=== PATIENT | male | born 1935 | race Caucasian/White ===

== ENCOUNTER 2017-10-06 09:03 | Day surgery (SDC) | payer MEDICARE, OTHER ==
[~2017-10-06 09:03] MED LIST: Bupivacaine 0.75%/D5W 2 ML Amp ONE; EPINEPHrine 1 MG/ML SDV ONE; Ketamine 500 mg/10 ML MDV ONE; Lactated Ringers 1,000 ML IV SCH; Lactated Ringers 1,000 ML ONE; Lidocaine 1% 12 ML ONE; Lidocaine 1%/Sod Bicarbonate in NS 8.4% 1 ML Syringe IDERM PRN; Lidocaine 1%/Sod Bicarbonate in NS 8.4% 1 ML Syringe IV PRN; Midazolam 1 MG/ML 2 ML SDV ONE; Morphine PF 10 MG/10 ML SDV ONE; Phenylephrine 1% 10 MG/ML SDV ONE; Propofol 200 MG/20 ML SDV ONE; Ropivacaine 0.5% 5 MG/ML 30 ML SDV ONE; Sodium Chloride 0.9% 10 ML Syringe FLUSH PRN; ceFAZolin 1 GM Vial ONE; fentaNYL 100 MCG/2 ML SDV ONE
--- NOTE | 2017-10-06 11:41 | PCM.PREANE ---
Preanesthetic Assessment - Procedure Proposed Procedure: right total knee arthroplasty and left knee cortisone injection - Anesthesia/Transfusion/Family Hx Anesthesia History: Prior Anesthesia Without Reaction Family History of Anesthesia Reaction: No Transfusion History: No Prior Transfusion(s) - Review of Systems General: No Symptoms Pulmonary: Other (COPD, MARQUITA with CPAP) Cardiovascular: Other (HTN, HLD) Neurological: Numbness (left mouth and cheek ), Weakness (slight left sided from hx of stroke ) Other: Reports: None, Easy Bruising (has not taken his blod thinner in "over a week"), Thyroid Problems (hypothyroid on replacement ) - Physical Assessment NPO Status Date: 10/05/17 NPO Status Time: 18:00 O2 Sat by Pulse Oximetry: 95 Respiratory Rate: 18 Vital Signs: Last Vital Signs Temp 37.2 C 10/06/17 09:40 Pulse 78 10/06/17 09:40 Resp 18 10/06/17 09:40 BP 124/76 10/06/17 09:40 Pulse Ox 95 10/06/17 09:40 Height: 1.75 m Weight: 112.4 kg ASA Class: 3 Mental Status: Alert & Oriented x3 Airway Class: Mallampati = 3 Dentition: Reports: Partial (upper and lower. Dentition appears fairly poor ) Thyro-Mental Finger Breadths: 3 Mouth Opening Finger Breadths: 3 ROM/Head Extension: Limited/Partial (hx of cervical surgery, difficult time extending) Lungs: Clear to Auscultation, Normal Respiratory Effort, Decreased Breath Sounds Cardiovascular: Regular Rate, Regular Rhythm, Other (distant heart tones ) - Lab Values: Laboratory Last Values Urine Color Dark yellow (Yellow) 10/06/17 09:30 Urine Appearance Clear (Clear) 10/06/17 09:30 Urine pH 6.0 (5.0-8.0) 10/06/17 09:30 Ur Specific Boomer > or = 1.030 (1.005-1.030) 10/06/17 09:30 Urine Protein Negative (Negative) 10/06/17 09:30 Urine Glucose (UA) Negative (Negative) 10/06/17 09:30 Urine Ketones Negative (Negative) 10/06/17 09:30 Urine Occult Blood Negative (Negative) 10/06/17 09:30 Urine Nitrite Negative (Negative) 10/06/17 09:30 Urine Bilirubin Negative (Negative) 10/06/17 09:30 Urine Urobilinogen 1.0 (0.2-1.0) 10/06/17 09:30 Ur Leukocyte Esterase Trace (Negative) H 10/06/17 09:30 Urine RBC 0-5 /hpf (0-5) 10/06/17 09:30 Urine WBC 0-5 /hpf (0-5) 10/06/17 09:30 Ur Epithelial Cells 5-10 /hpf (0-5) H 10/06/17 09:30 Urine Bacteria Few /hpf (FEW) 10/06/17 09:30 Urine Mucus Not seen /hpf (FEW) 10/06/17 09:30 - Allergies Allergies/Adverse Reactions: Allergies Allergy/AdvReac Type Severity Reaction Status Date / Time No Known Allergies Allergy Verified 10/03/17 11:04 - Blood Blood Available: No Product(s) Available: None - Anesthesia Plan Pre-Op Medication Ordered: None - Acknowledgements Anesthesia Type Planned: Spinal, Regional Block (adductor canal block post op) Pt an Appropriate Candidate for the Planned Anesthesia: Yes Alternatives and Risks of Anesthesia Discussed w Pt/Guardian: Yes Pt/Guardian Understands and Agrees with Anesthesia Plan: Yes PreAnesthesia Questionnaire HEENT History: Reports: Impaired Vision, Other (See Below) Other HEENT History: wears glasses, has dentures Cardiovascular History: Reports: High Cholesterol, Hypertension, Other (See Below) Other Cardiovascular History: 1st degree AV block Respiratory History: Reports: COPD, Sleep Apnea Gastrointestinal History: Reports: GERD, PUD Genitourinary History: Reports: BPH, Other (See Below) Other Genitourinary History: CKD III, testicular mass, prostatism, UTI [employer] History: Reports: None Musculoskeletal History: Reports: Osteoarthritis, Other (See Below) Other Musculoskeletal History: generalized weakenss, left shoulder pain Neurological History: Reports: CVA Psychiatric History: Reports: None Endocrine/Metabolic History: Reports: Hypothyroidism, Obesity/BMI 30+ Immunologic History: Reports: None Oncologic (Cancer) History: Reports: None Dermatologic History: Reports: Eczema - Past Surgical History Cardiovascular Surgical History: Reports: None Respiratory Surgical History: Reports: None GI Surgical History: Reports: Colonoscopy, Hernia, Inguinal, Other (See Below) Other GI Surgeries/Procedures: partial gastrectomy for PUD, poylpectomy Female Surgical History: Reports: None Male Surgical History: Reports: None Endocrine Surgical History: Reports: None Neurological Surgical History: Reports: Other (See Below) Other Neurological Surgeries/Procedures: laminoplasty of C4-5, C5-6, C6-7 Musculoskeletal Surgical History: Reports: Shoulder Surgery Oncologic Surgical History: Reports: None - SUBSTANCE USE Smoking Status *Q: Former Smoker Tobacco Use Within Last Twelve Months: No Second Hand Smoke Exposure: No Recreational Drug Use History: No - HOME MEDS Home Medications: Home Meds Cholecalciferol (Vitamin D3) [Vitamin D3] 5,000 unit PO DAILY 10/03/17 [History] Clopidogrel Bisulfate [Clopidogrel] 75 mg PO DAILY 10/03/17 [History] Clotrimazole [Clotrimazole 1%] 1 dose TOP BID PRN 10/03/17 [History] Docusate Sodium [Stool Softener] 100 mg PO DAILY 10/03/17 [History] Levothyroxine Sodium [Levoxyl] 125 mcg PO DAILY 10/03/17 [History] Metoprolol Succinate [Toprol Xl] 25 mg PO BEDTIME 10/03/17 [History] Omeprazole 40 mg PO DAILY 10/03/17 [History] Simvastatin [Zocor] 20 mg PO DAILY 10/03/17 [History] Sulfamethoxazole/Trimethoprim [Sulfamethoxazole-Tmp Ds Tablet] 1 tab PO DAILY [History] Tamsulosin HCl 0.4 mg PO DAILY 10/03/17 [History] buPROPion [Wellbutrin SR] 100 mg PO DAILY 10/03/17 [History] - CURRENT (IN HOUSE) MEDS Current Meds: Current Medications Acetaminophen (Tylenol) 975 mg PO NOW ONE Stop: 10/06/17 12:31 Bisacodyl (Dulcolax) 5 mg PO DAILY PRN PRN Reason: Constipation Morphine Sulfate 8 mg/Epinephrine HCl 0.3 mg/Cefuroxime Sodium 750 mg/Ketorolac Tromethamine 30 mg/Sodium Chloride 27.9 ml 0 mg .XX ONETIME ONE Stop: 10/06/17 12:31 Docusate Sodium (Colace) 100 mg PO BID ION Famotidine (Pepcid) 20 mg PO Q12H ION Lactated Ringer's (Ringers, Lactated) 1,000 mls @ 125 mls/hr IV ASDIRECTED ION Stop: 10/06/17 23:00 Last Admin: 10/06/17 10:10 Dose: 125 mls/hr Cefazolin Sodium/Dextrose 2 gm (/ Premix) 50 mls @ 100 mls/hr IV Q8H [facility] Stop: 10/06/17 23:44 Ketorolac Tromethamine (Toradol) 15 mg IVPUSH Q6H PRN PRN Reason: Pain Lidocaine/Sodium Bicarbonate (Buffered Lidocaine 1% In Ns 8.4%) 0.25 ml IDERM ONETIME PRN PRN Reason: Prior to IV Start Stop: 10/06/17 18:00 Last Admin: 10/06/17 10:10 Dose: 0.25 ml Magnesium Hydroxide (Milk Of Magnesia) 30 ml PO BID PRN PRN Reason: Constipation Morphine Sulfate (Morphine) 2 mg IVPUSH Q2H PRN PRN Reason: Breakthrough Pain Naloxone HCl (Narcan) 0.1 mg IVPUSH Q5M PRN PRN Reason: Oversedation Ondansetron HCl (Zofran) 4 mg IVPUSH Q6H PRN PRN Reason: Nausea/Vomiting Oxycodone HCl (Oxycontin) 10 mg PO ONETIME ONE Stop: 10/06/17 12:31 Oxycodone/Acetaminophen (Percocet 325-5 Mg) 1 - 2 tab PO Q4H PRN PRN Reason: Pain Pregabalin (Lyrica) 50 mg PO DAILY ION Rivaroxaban (Xarelto) 10 mg PO DAILY [facility] Senna (Senna) 8.6 mg PO BID PRN PRN Reason: Constipation Sodium Chloride (Saline Flush) 10 ml FLUSH ASDIRECTED PRN PRN Reason: Keep Vein Open Stop: 10/06/17 18:00 Discontinued Medications Bupivacaine HCl/Dextrose (Marcaine 0.75% Spinal) Confirm Administered Dose 2 ml .ROUTE .STK-MED ONE Stop: 10/06/17 07:27 Cefazolin Sodium (Ancef) Confirm Administered Dose 2 gm .ROUTE .STK-MED ONE Stop: 10/06/17 07:52 Epinephrine HCl (Adrenalin) Confirm Administered Dose 1 mg .ROUTE .STK-MED ONE Stop: 10/06/17 06:41 Fentanyl (Sublimaze) Confirm Administered Dose 100 mcg .ROUTE .STK-MED ONE Stop: 10/06/17 07:53 Lactated Ringer's (Ringers, Lactated) 1,000 mls @ 125 mls/hr IV ASDIRECTED ION Lidocaine HCl (Xylocaine-Mpf 1%) Confirm Administered Dose 12 mls @ as directed .ROUTE .STK-MED ONE Stop: 10/06/17 07:52 Lactated Ringer's (Ringers, Lactated) Confirm Administered Dose 1,000 mls @ as directed .ROUTE .STK-MED ONE Stop: 10/06/17 07:54 Ketamine HCl (Ketalar) Confirm Administered Dose 500 mg .ROUTE .STK-MED ONE Stop: 10/06/17 07:54 Lidocaine/Sodium Bicarbonate (Buffered Lidocaine 1% In Ns 8.4%) 0.25 ml IV ONETIME PRN PRN Reason: Prior to IV Start Midazolam HCl (Versed 1 Mg/Ml) Confirm Administered Dose 2 mg .ROUTE .STK-MED ONE Stop: 10/06/17 07:53 Morphine Sulfate (Duramorph Pf) Confirm Administered Dose 10 mg .ROUTE .STK-MED ONE Stop: 10/06/17 07:27 Phenylephrine HCl (Nav-Synephrine) Confirm Administered Dose 10 mg .ROUTE .STK- MED ONE Stop: 10/06/17 07:52 Propofol (Diprivan 20 Ml) Confirm Administered Dose 400 mg .ROUTE .STK-MED ONE Stop: 10/06/17 07:52 Ropivacaine (Naropin 0.5%) Confirm Administered Dose 30 ml .ROUTE .STK-MED ONE Stop: 10/06/17 06:41 Sodium Chloride (Saline Flush) 10 ml FLUSH ASDIRECTED PRN PRN Reason: Keep Vein Open
[2017-10-06] MEDS ORDERED: Bupivacaine 0.25% 30 ML SDV ONE (12:03)
[2017-10-06] MEDS ORDERED: Vancomycin 1 GM SDV ONE (12:21)
[2017-10-06] MEDS ORDERED: Iodine/Sodium Iodide 2% Tincture 30 ML Bottle ONE (12:21)
[2017-10-06] MEDS ORDERED: ceFAZolin 1 GM Vial ONE (12:22)
[2017-10-06] MEDS ORDERED: Triamcinolone Acetonide 40 MG/ML 1 ML MDV ONE ×2 (12:22→12:30)
[2017-10-06] MEDS ORDERED: Pregabalin 25 MG Cap PO SCH (12:30)
[2017-10-06] MEDS ORDERED: oxyCODONE ER 10 MG TAB.ER PO ONE (12:30)
[2017-10-06] MEDS ORDERED: Acetaminophen 325 MG Tab PO ONE (12:30)
[2017-10-06] MEDS ORDERED: Ondansetron 4 MG/2 ML SDV IVPUSH PRN ×2 (13:30→14:20)
[2017-10-06] MEDS ORDERED: Bisacodyl 5 MG Tab PO PRN (13:30)
[2017-10-06] MEDS ORDERED: Morphine 2 MG/ML Syringe IVPUSH PRN (13:30)
[2017-10-06] MEDS ORDERED: Sennosides 8.6 MG Tab PO PRN (13:30)
[2017-10-06] MEDS ORDERED: Naloxone 0.4 MG/ML SDV IVPUSH PRN (13:30)
[2017-10-06] MEDS ORDERED: Magnesium Hydroxide 400 MG/5 ML Susp 30 ML Cup PO PRN (13:30)
[2017-10-06] MEDS ORDERED: Ketorolac 15 MG/ML SDV IVPUSH PRN (13:30)
[2017-10-06] MEDS ORDERED: fentaNYL 100 MCG/2 ML SDV IVPUSH PRN (14:20)
[2017-10-06] MEDS ORDERED: HYDROmorphone 0.5 MG/0.5 ML Syringe IVPUSH PRN (14:20)
[2017-10-06] MEDS ORDERED: diphenhydrAMINE 50 MG/ML SDV IVPUSH PRN (14:20)
[2017-10-06] MEDS ORDERED: ePHEDrine 50 MG/ML SDV IVPUSH PRN (14:20)
[2017-10-06] MEDS ORDERED: Lidocaine 1% 4 ML ONE (14:21)
[2017-10-06] MEDS ORDERED: Phenylephrine 1 MG in Sodium Chloride 0.9% 10 ML IV SCH (14:30)
[2017-10-06] MEDS ORDERED: Lactated Ringers 1,000 ML ONE (14:51)
[2017-10-06] MEDS: Morphine 8 MG, EPINEPHrine 0.3 MG, Cefuroxime 750 MG, Ketorolac 30 MG, Sodium Chloride ... ONE ×10 (15:27→15:29)
[2017-10-06] MEDS: Bupivacaine 0.25% 30 ML SDV ONE ×2 (15:29→16:04)
[2017-10-06] MEDS ORDERED: Clotrimazole 1% Crm 30 GM Tube TOP PRN (16:19)
--- NOTE | 2017-10-06 16:20 | PCM.POSTAN ---
POST ANESTHESIA ASSESSMENT - MENTAL STATUS Mental Status: Alert, Oriented - VITAL SIGNS Pulse Rate: 73 SaO2: 93 Resp Rate: 15 Blood Pressure: 99/62 Temperature: 36.5 C - RESPIRATORY Respiratory Status: Respiratory Rate WNL, Airway Patent, O2 Saturation Stable, Supplemental Oxygen - CARDIOVASCULAR CV Status: Pulse Rate WNL, Blood Pressure Stable - GASTROINTESTINAL GI Status: No Symptoms - PAIN Pain Score: 0 - POST OP HYDRATION Hydration Status: Adequate & Stable
--- NOTE | 2017-10-06 16:51 | PCM.OPNOTE ---
- General Post-Op/Procedure Note Date of Surgery/Procedure: 10/06/17 Operative Procedure(s): right total knee arthroplasty Pre Op Diagnosis: right knee osteoarthrosis Post-Op Diagnosis: Same Anesthesia Technique: Local, MAC, Spinal Primary Surgeon: Dereck Ruff Anesthesia Provider: Deepa Ventura Developer Architect: Rosie Luis Developer Architect: Rukhsana Asher in mLs: 5 Complications: None Condition: Good Free Text/Narrative:: size 6 32x10 9mm
--- NOTE | 2017-10-06 16:52 | PCM.SN ---
- Free Text/Narrative Note: Right selective femoral nerve block at the adductor canal for post-procedure pain control Time Out: 1630 Start: 1630 End: 163 Chart reviewed. Consent signed. Questions answered. Appropriate monitors applied. Time out performed. Right mid-shaft femur evaluated with ultrasound. Scanning medially femur, I was able to identify the femoral artery in the adductor canal. The saphenous nerve was lateral to the artery. The skin was prepped lateral to the ultrasound probe with chlorahexadine. The 21ga 4 insulated block needle was inserted under direct ultrasound guidance into the adductor canal. 20mL of 0.5% ropivacaine with 1:200,000 epinephrine was injected cirmcumferentially about the nerve with intermittent negative aspiration every 5mL. Patient tolerated the procedure well. See pictures on progress note and vital signs on nurses notes. Block completed postoperatively. Messi Muñiz CRNA
--- NOTE | 2017-10-06 16:56 | CR ---
Right knee: AP and lateral views of the right knee were obtained. Comparison: No previous knee study. Recently placed right knee prosthesis is seen. Components are aligned. Soft tissue air is noted. Underlying bony structures are intact. Impression: 1. Satisfactory postoperative radiographic appearance of recently placed right knee prosthesis. Diagnostic code #2
[2017-10-06] MEDS: Docusate Sodium 100 MG Cap PO SCH (20:42)
[2017-10-06] MEDS: ceFAZolin 2 GM in Premix Bag 1 BAG IV SCH (20:43)
[2017-10-06] MEDS: Famotidine 20 MG Tab PO SCH (20:43)
[2017-10-06] MEDS ORDERED: Metoprolol Succinate 25 MG Tab.ER PO SCH (21:00)
[2017-10-06] MEDS ORDERED: Scopolamine 1.5 MG Transdermal Patch TRDERM PRN (21:05)
[2017-10-07] MEDS ORDERED: Metoclopramide 10 MG/2 ML SDV IVPUSH PRN (00:30)
[2017-10-07] MEDS: ceFAZolin 2 GM in Premix Bag 1 BAG IV SCH ×2 (05:28→12:03)
[2017-10-07] MEDS: Acetaminophen/oxyCODONE 325-5 MG Tab PO PRN ×2 (05:30→06:52)
--- NOTE | 2017-10-07 06:18 | PCM.CONS ---
H&P History of Present Illness - General Date of Service: 10/07/17 Admit Problem/Dx: Admission Diagnosis/Problem Admission Diagnosis/Problem Osteoarthritis of knee Source of Information: Patient, Old Records, Provider, RN, RN Notes Reviewed History Limitations: Reports: No Limitations - History of Present Illness Initial Comments - Free Text/Narative: Altaf Bustamante is a 82 yo male patient of Dr. Ruff who is post-operative day 1 of right TKA. Hospital medicine was consulted for post-operative medical care. At this time he is resting comfortably in the chair. Pain is controlled. He denies any chest pain, shortness of breath, palpitations, nausea, or vomiting. He carries a history of: COPD, MARQUITA on CPAP, HLD, HTN, 1st degree AV block, GERD, BPH, PUD, CKD stage III, testicular mass, prostatism, OA, CVA, obesity, hypotension, exzema. He is a former smoker. He is a full code. His primary care provider is Dr. Sam Spivey in [place]. Right Knee Pain Score (Numeric/FACES): 7 - Related Data Allergies/Adverse Reactions: Allergies Allergy/AdvReac Type Severity Reaction Status Date / Time No Known Allergies Allergy Verified 10/03/17 11:04 Home Medications: Home Meds Cholecalciferol (Vitamin D3) [Vitamin D3] 5,000 unit PO DAILY 10/03/17 [History] Clopidogrel Bisulfate [Clopidogrel] 75 mg PO DAILY 10/03/17 [History] Clotrimazole [Clotrimazole 1%] 1 dose TOP BID PRN 10/03/17 [History] Docusate Sodium [Stool Softener] 100 mg PO DAILY 10/03/17 [History] Levothyroxine Sodium [Levoxyl] 125 mcg PO DAILY 10/03/17 [History] Metoprolol Succinate [Toprol Xl] 25 mg PO BEDTIME 10/03/17 [History] Omeprazole 40 mg PO DAILY 10/03/17 [History] Simvastatin [Zocor] 20 mg PO DAILY 10/03/17 [History] Sulfamethoxazole/Trimethoprim [Sulfamethoxazole-Tmp Ds Tablet] 1 tab PO DAILY [History] Tamsulosin HCl 0.4 mg PO DAILY 10/03/17 [History] buPROPion [Wellbutrin SR] 100 mg PO DAILY 10/03/17 [History] Past Medical History HEENT History: Reports: Impaired Vision, Other (See Below) Other HEENT History: wears glasses, has dentures Cardiovascular History: Reports: High Cholesterol, Hypertension, Other (See Below) Other Cardiovascular History: 1st degree AV block Respiratory History: Reports: COPD, Sleep Apnea Gastrointestinal History: Reports: GERD, PUD Genitourinary History: Reports: BPH, Other (See Below) Other Genitourinary History: CKD III, testicular mass, prostatism, 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 Musculoskeletal History: Reports: Osteoarthritis, Other (See Below) Other Musculoskeletal History: generalized weakenss, left shoulder pain Neurological History: Reports: CVA Psychiatric History: Reports: None Endocrine/Metabolic History: Reports: Hypothyroidism, Obesity/BMI 30+ Immunologic History: Reports: None Oncologic (Cancer) History: Reports: None Dermatologic History: Reports: Eczema - Past Surgical History Cardiovascular Surgical History: Reports: None Respiratory Surgical History: Reports: None GI Surgical History: Reports: Colonoscopy, Hernia, Inguinal, Other (See Below) Other GI Surgeries/Procedures: partial gastrectomy for PUD, poylpectomy Female Surgical History: Reports: None Male Surgical History: Reports: None Endocrine Surgical History: Reports: None Neurological Surgical History: Reports: Other (See Below) Other Neurological Surgeries/Procedures: laminoplasty of C4-5, C5-6, C6-7 Musculoskeletal Surgical History: Reports: Shoulder Surgery Oncologic Surgical History: Reports: None Social & Family History - Tobacco Use Smoking Status *Q: Former Smoker Used Tobacco, but Quit: Yes Month/Year Tobacco Last Used: 1978 Second Hand Smoke Exposure: No - Caffeine Use Caffeine Use: Reports: Coffee - Recreational Drug Use Recreational Drug Use: No Drug Use in Last 12 Months: No H&P Review of Systems - Review of Systems: Review Of Systems: See Below General: Reports: No Symptoms HEENT: Reports: No Symptoms Pulmonary: Reports: No Symptoms Cardiovascular: Reports: No Symptoms Gastrointestinal: Reports: No Symptoms Genitourinary: Reports: No Symptoms Musculoskeletal: Reports: Leg Pain, Joint Pain Skin: Reports: No Symptoms Psychiatric: Reports: No Symptoms Neurological: Reports: No Symptoms Hematologic/Lymphatic: Reports: No Symptoms Immunologic: Reports: No Symptoms Exam - Exam Exam: See Below - Vital Signs Vital Signs: Last Vital Signs Temp 96.6 F 10/07/17 04:10 Pulse 78 10/07/17 04:10 Resp 16 10/07/17 04:10 BP 102/66 10/07/17 04:10 Pulse Ox 97 10/07/17 04:10 Weight: 247 lb 12.79 oz - Exam Quality Assessment: DVT Prophylaxis General: Alert, Oriented, Cooperative. No: Mild Distress HEENT: Conjunctiva Clear, EACs Clear, EOMI, Hearing Intact, Mucosa Moist & [place] , Nares Patent, Posterior Pharynx Clear, PERRLA Neck: Supple, Trachea Midline Lungs: Clear to Auscultation, Normal Respiratory Effort, Decreased Breath Sounds Cardiovascular: Regular Rate, Regular Rhythm GI/Abdominal Exam: Normal Bowel Sounds, Soft, Non-Tender, No Organomegaly, No Distention, No Abnormal Bruit, No Mass, Pelvis Stable (Male) Exam: Deferred Rectal (Males) Exam: Deferred Back Exam: Normal Inspection, Decreased Range of Motion Extremities: No Pedal Edema, Normal Capillary Refill, Leg Pain, Limited Range of Motion, Other (FRANKIE bandage on right leg. Bandage is dry and intact. Cooling pack in place.) Peripheral Pulses: 2+: Radial (L), Radial (R), Posterior Tibial (L), Posterior Tibial (R), Dorsalis Pedis (L), Dorsalis Pedis (R) Skin: Warm, Dry, Intact Neurological: Cranial Nerves Intact (grossly ) Neuro Extensive - Mental Status: Alert, Oriented x3, Normal Mood/Affect, Normal Cognition, Memory Intact Psychiatric: Alert, Normal Affect, Normal Mood - Patient Data Lab Results Last 24 hrs: Laboratory Results - last 24 hr 10/06/17 Range/Units 09:30 Urine Color Dark yellow (Yellow) Urine Appearance Clear (Clear) Urine pH 6.0 (5.0-8.0) Ur Specific Gaines > or = 1.030 (1.005-1.030) Urine Protein Negative (Negative) Urine Glucose (UA) Negative (Negative) Urine Ketones Negative (Negative) Urine Occult Blood Negative (Negative) Urine Nitrite Negative (Negative) Urine Bilirubin Negative (Negative) Urine Urobilinogen 1.0 (0.2-1.0) Ur Leukocyte Esterase Trace H (Negative) Urine RBC 0-5 (0-5) /hpf Urine WBC 0-5 (0-5) /hpf Ur Epithelial Cells 5-10 H (0-5) /hpf Urine Bacteria Few (FEW) /hpf Urine Mucus Not seen (FEW) /hpf Result Diagrams: 10/07/17 06:50 10/07/17 06:50 Consult PN Assessment/Plan POD#: 1 Procedures: Procedures PROTHROMBIN TIME (09/16/17) ROUTINE VENIPUNCTURE (09/16/17) THROMBOPLASTIN TIME PARTIAL (09/16/17) (1) S/P total knee arthroplasty SNOMED Code(s): 5959239949183, 596848183, 4292703068355 Code(s): Z96.659 - PRESENCE OF UNSPECIFIED ARTIFICIAL KNEE JOINT Priority: High Current Visit: Yes Qualifiers: Laterality: right Qualified Code(s): Z96.651 - Presence of right artificial knee joint (2) COPD (chronic obstructive pulmonary disease) SNOMED Code(s): 54334858 Code(s): J44.9 - CHRONIC OBSTRUCTIVE PULMONARY DISEASE, UNSPECIFIED Priority: Low Current Visit: No Qualifiers: COPD type: unspecified COPD Qualified Code(s): J44.9 - Chronic obstructive pulmonary disease, unspecified (3) MARQUITA (obstructive sleep apnea) SNOMED Code(s): 58910835 Code(s): G47.33 - OBSTRUCTIVE SLEEP APNEA (ADULT) (PEDIATRIC) Priority: Low Current Visit: No (4) HLD (hyperlipidemia) SNOMED Code(s): 32832219 Code(s): E78.5 - HYPERLIPIDEMIA, UNSPECIFIED Priority: Low Current Visit : No Qualifiers: Hyperlipidemia type: unspecified Qualified Code(s): E78.5 - Hyperlipidemia , unspecified (5) HTN (hypertension) SNOMED Code(s): 68683107 Code(s): I10 - ESSENTIAL (PRIMARY) HYPERTENSION Priority: Low Current Visit: No Qualifiers: Hypertension type: unspecified Qualified Code(s): I10 - Essential (primary ) hypertension (6) 1st degree AV block SNOMED Code(s): 745177164 Code(s): I44.0 - ATRIOVENTRICULAR BLOCK, FIRST DEGREE Priority: Low Current Visit: No (7) GERD (gastroesophageal reflux disease) SNOMED Code(s): 707175449 Code(s): K21.9 - GASTRO-ESOPHAGEAL REFLUX DISEASE WITHOUT ESOPHAGITIS Priority: Low Current Visit: No Qualifiers: Esophagitis presence: esophagitis presence not specified Qualified Code(s) : K21.9 - Gastro-esophageal reflux disease without esophagitis (8) PUD (peptic ulcer disease) SNOMED Code(s): 54612911 Code(s): K27.9 - PEPTIC ULC, SITE UNSP, UNSP AC OR CHR, W/O HEMOR OR PERF Priority: Low Current Visit: No (9) BPH (benign prostatic hyperplasia) SNOMED Code(s): 164516319 Code(s): N40.0 - BENIGN PROSTATIC HYPERPLASIA WITHOUT LOWER URINRY TRACT SYMP Priority: Low Current Visit: No Qualifiers: Lower urinary tract symptom presence: unspecified whether lower urinary tract symptoms present Qualified Code(s): N40.0 - Benign prostatic hyperplasia without lower urinary tract symptoms (10) CKD (chronic kidney disease) stage 3, GFR 30-59 ml/min SNOMED Code(s): 336266037 Code(s): N18.3 - CHRONIC KIDNEY DISEASE, STAGE 3 (MODERATE) Priority: Medium Current Visit: No (11) Osteoarthritis SNOMED Code(s): 439556836 Code(s): M19.90 - UNSPECIFIED OSTEOARTHRITIS, UNSPECIFIED SITE Priority: High Current Visit: Yes Qualifiers: Osteoarthritis location: knee Osteoarthritis type: primary Laterality: bilateral Qualified Code(s): M17.0 - Bilateral primary osteoarthritis of knee (12) History of CVA (cerebrovascular accident) SNOMED Code(s): 655726593 Code(s): Z86.73 - PRSNL HX OF TIA (TIA), AND CEREB INFRC W/O RESID DEFICITS Priority: Medium Current Visit: No (13) Hypothyroidism SNOMED Code(s): 85842011 Code(s): E03.9 - HYPOTHYROIDISM, UNSPECIFIED Priority: Medium Current Visit: No Qualifiers: Hypothyroidism type: unspecified Qualified Code(s): E03.9 - Hypothyroidism , unspecified (14) Obesity SNOMED Code(s): 168456048, 958327909 Code(s): E66.9 - OBESITY, UNSPECIFIED Priority: Low Current Visit: No Qualifiers: Obesity type: unspecified obesity type Obesity classification: adult class 2 (BMI 35 - 39.9) Serious obesity comorbidity presence: unspecified whether serious comorbidity present Body mass index: BMI 36.0-36.9 Qualified Code(s) : E66.9 - Obesity, unspecified; Z68.36 - Body mass index (BMI) 36.0-36.9, adult (15) Eczema SNOMED Code(s): 28888977 Code(s): L30.9 - DERMATITIS, UNSPECIFIED Priority: Low Current Visit: No Qualifiers: Eczema type: unspecified Qualified Code(s): L30.9 - Dermatitis, unspecified Problem List Initiated/Reviewed/Updated: Yes Plan: I/P: Acute: S/P right total knee arthroplasty - post-operative day 1 -DVT prophylaxis and pain management per primary care team -PT/OT -IS/RT -Monitor oxygen saturation -Titrate oxygen as needed -Vital signs stable -Monitor labs -Pre-operative Hgb was 15.7, now 14.3 -Pre-operative GFR was 57, now >60 S/P left knee cortisone injection -Management per primary care team Osteoarthritis of bilateral knee joints -Pain management per primary care team Post-operative nausea and vomiting, Resolved -Reglan given -Resolved this AM Chronic: COPD MARQUITA on CPAP HLD HTN 1st degree AV block GERD BPH PUD CKD stage III testicular mass prostatism OA CVA obesity hypotension exzema Plan: CM for discharge planning GI prophylaxis Home medications as indicated Other orders as listed above Routine AM labs He is a full code. His PCP is Dr. Sam Spivey in [place] He has been doing well. No issues with therapy. He was weaned off O2. Nursing has no concerns. From a hospitalist standpoint he is clear for discharge pending primary team agreement. Thank you for allowing us to participate in the care of this patient!! Requesting Provider: Dr. Ruff Date Consult Requested: 10/06/17 Reason for Consult: Post-operative medical care Patient History Reviewed: Yes Admission H&P Reviewed: Yes Time Spent (in minutes): 30
[2017-10-07] MEDS ORDERED: Pantoprazole 40 MG Tab.CR PO SCH (07:00)
--- NOTE | 2017-10-07 08:10 | PCM48HPAN ---
Post Anesthesia Note - EVALUATION WITHIN 48HRS OF ANESTHETIC Vital Signs in Normal Range: Yes Patient Participated in Evaluation: Yes Respiratory Function Stable: Yes Airway Patent: Yes Cardiovascular Function Stable: Yes Hydration Status Stable: Yes Pain Control Satisfactory: Yes Nausea and Vomiting Control Satisfactory: No Mental Status Recovered: Yes - COMMENTS/OBSERVATIONS Free Text/Narrative:: Altaf is resting in bed this morning. He is happy with his pain control. He was very nauseated last evening. He will attempt to eat breakfast this morning. He does feel it is improving.
[2017-10-07] MEDS ORDERED: Clopidogrel 75 MG Tab PO SCH (09:00)
[2017-10-07] MEDS ORDERED: Rivaroxaban 10 MG Tab PO SCH ×2 (09:00)
[2017-10-07] MEDS ORDERED: Levothyroxine 125 MCG Tab PO SCH (09:00)
[2017-10-07] MEDS ORDERED: Sulfamethoxazole/Trimethoprim 800-160 MG Tab PO SCH (09:00)
[2017-10-07] MEDS ORDERED: Cholecalciferol (Vitamin D3) 1,000 Unit Tab PO SCH (09:00)
[2017-10-07] MEDS ORDERED: buPROPion 100 MG Tab.SR PO SCH (09:00)
[2017-10-07] MEDS ORDERED: Simvastatin 20 MG Tab PO SCH (09:00)
[2017-10-07] MEDS ORDERED: Tamsulosin 0.4 MG Cap.ER PO SCH (09:00)
[2017-10-07] MEDS: Docusate Sodium 100 MG Cap PO SCH (09:31)
[2017-10-07] MEDS: Famotidine 20 MG Tab PO SCH (09:32)
--- NOTE | 2017-10-07 23:19 | PCM.SURGPN ---
- General Info Date of Service: 10/07/17 POD#: 1 Functional Status: Reports: Pain Controlled, Tolerating Diet, Ambulating, Urinating, Incentive Spirometry - Review of Systems Musculoskeletal: Reports: Other (The pt's states she is able to assist pt as needed upon d/c from Hospital. The pt states he is doing well.) - Patient Data Vitals - Most Recent: Last Vital Signs Temp 99.3 F 10/07/17 11:49 Pulse 90 10/07/17 11:17 Resp 20 10/07/17 11:17 BP 110/66 10/07/17 11:17 Pulse Ox 93 L 10/07/17 11:17 Weight - Most Recent: 247 lb 12.79 oz I&O - Last 24 Hours: Intake & Output 10/07/17 10/07/17 10/08/17 14:59 22:59 06:59 Intake Total 120 Balance 120 Lab Results Last 24 Hrs: Laboratory Results - last 24 hr 10/07/17 10/07/17 Range/Units 06:50 06:50 WBC 10.25 H (4.23-9.07) K/mm3 RBC 4.57 L (4.63-6.08) M/mm3 Hgb 14.3 (13.7-17.5) gm/L Hct 43.2 (40.1-51.0) % MCV 94.5 H (79.0-92.2) fl MCH 31.3 (25.7-32.2) pg MCHC 33.1 (32.2-35.5) g/dl RDW Std Deviation 50.4 H (35.1-43.9) fL Plt Count 182 (163-337) K/mm3 MPV 10.6 (9.4-12.3) fl Sodium 142 (136-145) mEq/L Potassium 4.9 (3.5-5.1) mEq/L Chloride 107 (98-107) mEq/L Carbon Dioxide 24 (21-32) mEq/L Anion Gap 15.9 H (5-15) BUN 17 (7-18) mg/dL Creatinine 1.3 (0.7-1.3) mg/dL Est Cr Clr Drug Dosing 45.32 mL/min Estimated GFR (MDRD) 53 (>60) mL/min BUN/Creatinine Ratio 13.1 L (14-18) Glucose 117 H (83-115) mg/dL Calcium 8.9 (8.5-10.1) mg/dL Total Bilirubin 0.5 (0.2-1.0) mg/dL AST 15 (15-37) U/L ALT 15 L (16-63) U/L Alkaline Phosphatase 74 (46-116) U/L Total Protein 6.8 (6.4-8.2) g/dl Albumin 3.2 L (3.4-5.0) g/dl Globulin 3.6 gm/dL Albumin/Globulin Ratio 0.9 L (1-2) Med Orders - Current: Current Medications Discontinued Medications Acetaminophen (Tylenol) 975 mg PO NOW ONE Stop: 10/06/17 12:31 Last Admin: 10/06/17 12:10 Dose: 975 mg Bisacodyl (Dulcolax) 5 mg PO DAILY PRN PRN Reason: Constipation Bupivacaine HCl (Marcaine 0.25%) Confirm Administered Dose 30 ml .ROUTE .STK- MED ONE Stop: 10/06/17 12:04 Bupivacaine HCl (Marcaine 0.25%) Confirm Administered Dose 30 ml .ROUTE .STK- MED ONE Stop: 10/06/17 12:24 Last Admin: 10/06/17 16:04 Dose: 4 ml Bupivacaine HCl/Dextrose (Marcaine 0.75% Spinal) Confirm Administered Dose 2 ml .ROUTE .STK-MED ONE Stop: 10/06/17 07:27 Bupropion HCl (Wellbutrin Sr) 100 mg PO DAILY [facility] Last Admin: 10/07/17 09:32 Dose: 100 mg Cefazolin Sodium (Ancef) Confirm Administered Dose 2 gm .ROUTE .STK-MED ONE Stop: 10/06/17 07:52 Last Admin: 10/06/17 15:12 Dose: 2 gm Cefazolin Sodium (Ancef) Confirm Administered Dose 2 gm .ROUTE .STK-MED ONE Stop: 10/06/17 12:23 Cholecalciferol (Vitamin D3) 5,000 units PO DAILY [facility] Last Admin: 10/07/17 09:31 Dose: 5,000 units Clopidogrel Bisulfate (Plavix) 75 mg PO DAILY [facility] Last Admin: 10/07/17 09:31 Dose: 75 mg Clotrimazole (Lotrimin Af 1% Crm) 0 gm TOP BID PRN PRN Reason: skin complications Morphine Sulfate 8 mg/Epinephrine HCl 0.3 mg/Cefuroxime Sodium 750 mg/Ketorolac Tromethamine 30 mg/Sodium Chloride 27.9 ml 0 mg .XX ONETIME ONE Stop: 10/06/17 12:31 Last Admin: 10/06/17 15:29 Dose: 788.3 mg Diphenhydramine HCl (Benadryl) 25 mg IVPUSH Q6H PRN PRN Reason: pruritis Stop: 10/06/17 18:00 Docusate Sodium (Colace) 100 mg PO BID [facility] Last Admin: 10/07/17 09:31 Dose: 100 mg Ephedrine Sulfate (Ephedrine Sulfate) 5 mg IVPUSH ASDIRECTED PRN PRN Reason: Hypotension Stop: 10/06/17 18:00 Epinephrine HCl (Adrenalin) Confirm Administered Dose 1 mg .ROUTE .STK-MED ONE Stop: 10/06/17 06:41 Famotidine (Pepcid) 20 mg PO Q12H [facility] Last Admin: 10/07/17 09:32 Dose: 20 mg Fentanyl (Sublimaze) Confirm Administered Dose 100 mcg .ROUTE .STK-MED ONE Stop: 10/06/17 07:53 Fentanyl (Sublimaze) 50 mcg IVPUSH Q5M PRN PRN Reason: Pain Stop: 10/06/17 14:21 Hydromorphone HCl (Dilaudid) 0.5 mg IVPUSH ONETIME PRN PRN Reason: Pain Stop: 10/06/17 14:21 Lactated Ringer's (Ringers, Lactated) 1,000 mls @ 125 mls/hr IV ASDIRECTED [facility] Lactated Ringer's (Ringers, Lactated) 1,000 mls @ 125 mls/hr IV ASDIRECTED [facility] Stop: 10/06/17 23:00 Last Admin: 10/06/17 10:10 Dose: 125 mls/hr Cefazolin Sodium/Dextrose 2 gm (/ Premix) 50 mls @ 100 mls/hr IV Q8H [facility] Stop: 10/07/17 12:59 Last Admin: 10/07/17 12:03 Dose: 100 mls/hr Lidocaine HCl (Xylocaine-Mpf 1%) Confirm Administered Dose 12 mls @ as directed .ROUTE .STK-MED ONE Stop: 10/06/17 07:52 Lactated Ringer's (Ringers, Lactated) Confirm Administered Dose 1,000 mls @ as directed .ROUTE .[facility]-MED ONE Stop: 10/06/17 07:54 Lidocaine HCl (Xylocaine-Mpf 1%) Confirm Administered Dose 4 mls @ as directed .ROUTE .[facility]-MED ONE Stop: 10/06/17 14:22 Phenylephrine HCl 1 mg/ Sodium (Chloride) 10.1 mls @ 1 mls/sec IV TITRATE ION; Protocol Stop: 10/06/17 18:00 Lactated Ringer's (Ringers, Lactated) Confirm Administered Dose 1,000 mls @ as directed .ROUTE .[facility]-MED ONE Stop: 10/06/17 14:52 Iodine (Iodine 2% Mild Tincture) Confirm Administered Dose 30 ml .ROUTE .[facility]- MED ONE Stop: 10/06/17 12:22 Last Admin: 10/06/17 15:21 Dose: 18 ml Ketamine HCl (Ketalar) Confirm Administered Dose 500 mg .ROUTE .[facility]-MED ONE Stop: 10/06/17 07:54 Ketorolac Tromethamine (Toradol) 15 mg IVPUSH Q6H PRN PRN Reason: Pain Last Admin: 10/07/17 06:49 Dose: 15 mg Levothyroxine Sodium (Levothyroxine) 125 mcg PO DAILY [facility] Last Admin: 10/07/17 09:32 Dose: 125 mcg Lidocaine/Sodium Bicarbonate (Buffered Lidocaine 1% In Ns 8.4%) 0.25 ml IV ONETIME PRN PRN Reason: Prior to IV Start Lidocaine/Sodium Bicarbonate (Buffered Lidocaine 1% In Ns 8.4%) 0.25 ml IDERM ONETIME PRN PRN Reason: Prior to IV Start Stop: 10/06/17 18:00 Last Admin: 10/06/17 10:10 Dose: 0.25 ml Magnesium Hydroxide (Milk Of Magnesia) 30 ml PO BID PRN PRN Reason: Constipation Metoclopramide HCl (Reglan) 5 mg IVPUSH Q4HR PRN PRN Reason: Nausea Last Admin: 10/07/17 00:49 Dose: 5 mg Metoprolol Succinate (Toprol Xl) 25 mg PO BEDTIME ION Last Admin: 10/06/17 20:42 Dose: 25 mg Midazolam HCl (Versed 1 Mg/Ml) Confirm Administered Dose 2 mg .ROUTE .STK-MED ONE Stop: 10/06/17 07:53 Miscellaneous Information (Remove Patch) 1 ea TRDERM Q72H PRN PRN Reason: IF SCOPALMINE PATCH IS APPLIED Morphine Sulfate (Morphine) 2 mg IVPUSH Q2H PRN PRN Reason: Breakthrough Pain Morphine Sulfate (Duramorph Pf) Confirm Administered Dose 10 mg .ROUTE .[facility]-MED ONE Stop: 10/06/17 07:27 Naloxone HCl (Narcan) 0.1 mg IVPUSH Q5M PRN PRN Reason: Oversedation Ondansetron HCl (Zofran) 4 mg IVPUSH Q6H PRN PRN Reason: Nausea/Vomiting Last Admin: 10/06/17 17:54 Dose: 4 mg Ondansetron HCl (Zofran) 4 mg IVPUSH ONETIME PRN PRN Reason: Nausea/Vomiting Stop: 10/06/17 18:00 Oxycodone HCl (Oxycontin) 10 mg PO ONETIME ONE Stop: 10/06/17 12:31 Last Admin: 10/06/17 12:10 Dose: 10 mg Oxycodone/Acetaminophen (Percocet 325-5 Mg) 1 - 2 tab PO Q4H PRN PRN Reason: Pain Last Admin: 10/07/17 06:52 Dose: 1 tab Pantoprazole Sodium (Protonix) 40 mg PO DAILY@0700 [facility] Last Admin: 10/07/17 06:28 Dose: 40 mg Phenylephrine HCl (Nav-Synephrine) Confirm Administered Dose 10 mg .ROUTE .STK- MED ONE Stop: 10/06/17 07:52 Pregabalin (Lyrica) 50 mg PO DAILY [facility] Last Admin: 10/06/17 12:11 Dose: 50 mg Propofol (Diprivan 20 Ml) Confirm Administered Dose 400 mg .ROUTE .STK-MED ONE Stop: 10/06/17 07:52 Rivaroxaban (Xarelto) 10 mg PO DAILY [facility] Rivaroxaban (Xarelto) 10 mg PO DAILY [facility] Last Admin: 10/07/17 09:31 Dose: 10 mg Ropivacaine (Naropin 0.5%) Confirm Administered Dose 30 ml .ROUTE .STK-MED ONE Stop: 10/06/17 06:41 Scopolamine (Transderm-Scop) 1.5 mg TRDERM Q72H PRN PRN Reason: Nausea Last Admin: 10/06/17 21:36 Dose: 1.5 mg Senna (Senna) 8.6 mg PO BID PRN PRN Reason: Constipation Simvastatin (Zocor) 20 mg PO DAILY [facility] Last Admin: 10/07/17 09:31 Dose: 20 mg Sodium Chloride (Saline Flush) 10 ml FLUSH ASDIRECTED PRN PRN Reason: Keep Vein Open Sodium Chloride (Saline Flush) 10 ml FLUSH ASDIRECTED PRN PRN Reason: Keep Vein Open Stop: 10/06/17 18:00 Tamsulosin HCl (Flomax) 0.4 mg PO DAILY [facility] Last Admin: 10/07/17 09:32 Dose: 0.4 mg Tranexamic Acid (Cyklokapron) Confirm Administered Dose 1,000 mg .ROUTE .STK- MED ONE Stop: 10/06/17 12:22 Last Admin: 10/06/17 15:34 Dose: 1,000 mg Triamcinolone Acetonide (Kenalog-40) Confirm Administered Dose 40 mg .ROUTE .STK -MED ONE Stop: 10/06/17 12:23 Last Admin: 10/06/17 16:04 Dose: 80 mg Triamcinolone Acetonide (Kenalog-40) Confirm Administered Dose 40 mg .ROUTE .STK -MED ONE Stop: 10/06/17 12:31 Trimethoprim/Sulfamethoxazole (Septra Ds) 1 tab PO DAILY [facility] Last Admin: 10/07/17 09:31 Dose: 1 tab Vancomycin HCl (Vancomycin) Confirm Administered Dose 1 gm .ROUTE .STK-MED ONE Stop: 10/06/17 12:22 Last Admin: 10/06/17 15:31 Dose: 1 gm - Exam Wound/Incisions: Dressing Dry and Intact General: Alert, Cooperative, No Acute Distress Lungs: Normal Respiratory Effort Extremities: Other (NVS intact for BLE and Sha's negative BLE.) - Problem List Review Problem List Initiated/Reviewed/Updated: Yes - My Orders Last 24 Hours: Active Orders 24 hr Category Date Time Status Ready for Discharge [RC] PER UNIT ROUTINE Care 10/07/17 13:23 Active - Assessment Assessment (Free Text/Narrative):: POD#1 - s/p right TKA with left knee cortisone injection - Plan Plan (Free Text/Narrative):: 1. Resume Plavix today. Xarelto initiated today and discussed with Hospitalist and pt's PCP Dr. Spivey. 2. Outpatient therapy. 3. Hgb 14.3 today. 4. Further orders per Hospitalist service. The pt's case was discussed with Dr. Ruff.
--- NOTE | 2017-10-09 06:47 | OR ---
DATE OF OPERATION: 10/06/2017 SURGEON: Dereck Ruff MD OPERATION PERFORMED: Right total knee arthroplasty. PREOPERATIVE DIAGNOSIS: Right knee osteoarthrosis. POSTOPERATIVE DIAGNOSIS: Right knee osteoarthrosis. ANESTHESIA: Local MAC with spinal. ANESTHESIA PROVIDER: Deepa Ventura CRNA. ASSISTANTS: Rosie Luis PA-C and Rukhsana Asher LPN. ESTIMATED BLOOD LOSS: 5 mL. COMPLICATIONS: None. CONDITION: Stable. IMPLANTS: 1. Le size 6 PS femur. 2. Le size 6 universal tibial base plate. 3. Le size 32 x 10 mm asymmetric patella. 4. [place] size 6, 9 mm PS polyethylene insert. DESCRIPTION OF PROCEDURE: The patient was identified in the preop holding area. Proper site was marked and identified by the surgeon. The patient was taken back to the operating theater. After adequate anesthesia, the patient's right lower extremity had a nonsterile tourniquet applied and it was then sterilely prepped and draped in the usual sterile fashion. OR timeout was performed. The patient received 2 g IV Ancef. At this time, right lower extremity was exsanguinated. Tourniquet was insufflated to 300 mmHg. Standard medial parapatellar incision was made. Medial parapatellar arthrotomy was created. Deep fibers of the MCL were raised and anterior fat pad was resected. At this time, attention was turned to the patella. Patella measured 24, it was resected to a 14 for the 32 x 10 mm patella. Drill holes were then drilled and found to be in adequate position. The drill was then drilled in the distal femur and the intramedullary distal femoral cutting guide was then placed, 10 mm was resected off the distal femur and was found to be an adequate resection. Sizing guide was placed. It was found to be a size 6 PS femur that was shown on the implant record at the beginning of this dictation. The drill holes were drilled for the epicondylar axis using Whitesides line and epicondyles as reference. At this time, the 4-in- 1 cutting block was placed. An anterior posterior and anterior and posterior chamfer cuts were then completed. The correct size box cut was then placed and the box cut was completed and found to be an adequate resection. Attention was turned to the tibia. The posterior medial lateral retractors were placed. The extramedullary tibial guide was placed. It was placed in the old footprint of the ACL. It was aligned with the center of the ankle and 0 degrees of slope, 9 mm was then resected off the unaffected lateral side. There was found to be an acceptable reduction. At this time, posterior osteophytes were removed along with medial and lateral meniscus. A trial implant was placed with a correct sized tibia that was mentioned at the beginning of the dictation. A [place] size 6, 9 mm PS polyethylene insert was then placed. The patient's knee was brought through range of motion. The patella was tracking centrally and was stable to varus and valgus stress. Alignment was found to be roughly at 0 degrees. At this time, cement was mixed on the back table. The tibia was stamped and drilled in proper rotation. All cut surfaces were irrigated with pulse lavage irrigation with Ancef and then completely dried. Once this was completed, then the cement was ready. The universal tibial base plate was cemented in place. Next, the 6 PS femur cemented into place and the Le size 6, 9 mm PS polyethylene insert was placed. The patient's knee was brought into full extension. Excess cement was removed. The patella was then cemented in place at this time. Tourniquet was deflated. One liter dilute Betadine solution was irrigated through the knee along with 3 L of pulse lavage irrigation with Ancef. Periarticular injection was then completed. The patient's knee was brought through a range of motion. Once the cement had time to set up and it was found to be stable to varus valgus stress, the patella was tracking centrally with full range of motion. At this time, a #2 barbed suture was used for closure of the medial parapatellar arthrotomy. Topical tranexamic acid was placed. 2-0 Vicryl was used subcutaneously, a running 3-0 Monocryl was used subcuticularly. The patient tolerated the procedure well and was sent to the PACU in stable condition. VICKIE /[id number]
== END 2017-10-07 14:15 | disposition home or self-care (01) ==
LOC: JD.SDS 09:03 → JD.MS 09:03 → UNDOADMIN 09:03 → EDSTATUS 09:45 → JD.SDS 10-07 14:15
PROVIDERS: ATTEND Orthopaedic Surgery
DX: M17.11 Unilateral primary osteoarthritis, right knee (principal); I12.9 Hypertensive chronic kidney disease with stage 1 through stage 4 chronic kidney disease, or unspecified chronic kidney disease; N18.3 Chronic kidney disease, stage 3 (moderate); E78.5 Hyperlipidemia, unspecified; J44.9 Chronic obstructive pulmonary disease, unspecified; K21.9 Gastro-esophageal reflux disease without esophagitis; G47.33 Obstructive sleep apnea (adult) (pediatric); E66.9 Obesity, unspecified; Z87.891 Personal history of nicotine dependence; Z79.2 Long term (current) use of antibiotics; Z79.899 Other long term (current) drug therapy; Z68.37 Body mass index [BMI] 37.0-37.9, adult
CPT/HCPCS: 27447; 36415; 64450; 73560; 80053; 81001; 85027; 94762; 97110; 97116; 97161; 97165; 97535; A9270; C1713; C1776; J0171; J0690; J0697; J1885; J2250; J2270; J2370; J2405; J2765; J2795; J3010; J3301; J3370; J3490; J7120; 87641; J2704